=== PATIENT | female | born 1950 | race Caucasian/White ===

== ENCOUNTER 2024-10-12 21:06 | Emergency (ER) | payer MEDICARE, BC ==
[~2024-10-12] VITALS: Ht 154.9 cm; Wt 77.0 kg
[2024-10-13 01:05] VITALS: BP 132/83; PULSE 78; RESP 15; TEMP 97.2; O2SAT 93
[2024-10-13] MEDS ORDERED: AMLO10TA4 PO (02:05)
[2024-10-13 02:14] LABS: BASOPHILS # (AUTO) 0.1 X10'3 (0-0.2); BASOPHILS % (AUTO) 0.9 % (0-1); EOSINOPHILS # (AUTO) 0.2 X10'3 (0-0.9); EOSINOPHILS % (AUTO) 1.8 % (0-6); HEMOGLOBIN 14.2 g/dl (12.0-16.0); LYMPHOCYTES # (AUTO) 2.6 X10'3 (1.1-4.8); LYMPHOCYTES % (AUTO) 26.6 % (21-51); MEAN CORPUSCULAR HEMOGLOBIN 32.1 PG (27.0-31.0); MEAN CORPUSCULAR VOLUME 97.1 FL (78-98); MEAN PLATELET VOLUME 7.8 FL (7.4-10.4); MONOCYTES % (AUTO) 10.6 % (2-12); NEUTROPHILS # (AUTO) 5.9 X10'3 (1.8-7.7); NEUTROPHILS % (AUTO) 60.1 % (42-75); PLATELET COUNT 221 X10'3 (140-440); RED BLOOD COUNT 4.43 X10'6 (4.20-5.60); RED CELL DISTRIBUTION WIDTH 14.1 % (11.5-14.5); WHITE BLOOD COUNT 9.8 X10'3 (4.5-11.0)
[2024-10-13 02:31] LABS: ALANINE AMINOTRANSFERASE 24 U/L (12-78); ALBUMIN 3.8 G/DL (3.4-5.0); ALKALINE PHOSPHATASE 73 IU/L (46-116); ANION GAP 7 (8-16); ASPARTATE AMINO TRANSFERASE 20 U/L (10-37); BILIRUBIN,TOTAL 0.3 MG/DL (0.1-1.0); BLOOD UREA NITROGEN 19 MG/DL (7-18); BUN/CREATININE RATIO 23.2 (10.0-20.0); CALCIUM 8.9 MG/DL (8.5-10.1); CHLORIDE 103 MMOL/L (99-107); CREATININE 0.82 MG/DL (0.40-0.90); GLUCOSE 107 MG/DL (70-104); POTASSIUM 3.9 MMOL/L (3.5-5.1); SODIUM 138 MMOL/L (135-145); TOTAL CARBON DIOXIDE 27.8 MMOL/L (24-32); TOTAL PROTEIN 7.6 G/DL (6.4-8.2); eCRCL 47 ML/MIN; eGFR 69 ML/MIN
[2024-10-13] MEDS: dexamethasone sod phosphate 10mg/ml inj PO STA (02:45)
[2024-10-13] MEDS: diphenhydrAMINE 25 MG/10 ML UD oral solution PO ONE (02:45)
== END 2024-10-13 02:48 | disposition home or self-care (01) ==
LOC: ER 21:07
DX: R05.9 Cough, unspecified (principal); I10 Essential (primary) hypertension; M19.90 Unspecified osteoarthritis, unspecified site; Z87.891 Personal history of nicotine dependence; Z88.4 Allergy status to anesthetic agent; Z98.890 Other specified postprocedural states; Z20.822 Contact with and (suspected) exposure to COVID-19
CPT/HCPCS: 36415; 71045; 80053; 85025; 87502; 87503; 87811; 99284; J1100

== ENCOUNTER 2024-12-01 10:36 | Outpatient (CLI) | payer MEDICARE, BC ==
[~2024-12-01 10:36] MED LIST: AMLO10TA4 PO
== END 2024-12-01 23:59 | disposition home or self-care (01) ==
LOC: MRI02 10:36
PROVIDERS: ATTEND Family Medicine
DX: M65.872 Other synovitis and tenosynovitis, left ankle and foot (principal); M79.672 Pain in left foot; M67.472 Ganglion, left ankle and foot; M72.2 Plantar fascial fibromatosis
CPT/HCPCS: 73718; 73721